=== PATIENT | female | born 1990 | race Hispanic/Latino ===

== ENCOUNTER 2022-07-31 08:27 | Emergency (ER) | payer MEDICARE, MEDICAID ==
[~2022-07-31] VITALS: Ht 154.9 cm; Wt 74.8 kg
[2022-07-31 08:54] LABS: BASOPHILS % (AUTO) 0.4 % (0.0-5.0); EOSINOPHILS % (AUTO) 1.5 % (0.0-8.0); HEMATOCRIT 31.4 % (36-48); MEAN CORPUSCULAR HEMOGLOBIN 27.1 pg (27.0-33.0); MEAN CORPUSCULAR HGB CONC 32.5 g/dL (32.0-36.0); MEAN CORPUSCULAR VOLUME 83.5 fL (79-99); NEUTROPHILS % (AUTO) 72.6 % (40.0-77.0); PLATELET COUNT (AUTO) 335 K/uL (130-400); RED BLOOD CELL COUNT(AUTO) 3.76 MIL/uL (4.00-5.50); RED CELL DISTRIBUTION WIDTH 16.9 % (11.0-15.5); WHITE BLOOD COUNT (AUTO) 8.3 K/uL (4.8-10.8)
[2022-07-31] MEDS ORDERED: 0.9%NACL 1000ML 1,000 ML IV SCH (09:00)
[2022-07-31] MEDS ORDERED: ONDANSETRON 4MG INJ IV ONE (09:00)
[2022-07-31] MEDS ORDERED: ACETAMINOPHEN 500 MG TABLET PO ONE (09:00)
[2022-07-31 09:04] LABS: CREATININE 0.5 mg/dL (0.5-1.5); POTASSIUM 3.3 mmol/L (3.5-5.1)
[2022-07-31 09:09] LABS: ALBUMIN 2.4 g/dL (3.5-5.0); TOTAL PROTEIN, SERUM 6.4 g/dL (6.0-8.3)
[2022-07-31 11:01] VITALS: BP 109/69
== END 2022-07-31 11:02 | disposition home or self-care (01) ==
LOC: EDH 08:27
DX: O89.4 Spinal and epidural anesthesia-induced headache during the puerperium (principal); O90.89 Other complications of the puerperium, not elsewhere classified; R11.2 Nausea with vomiting, unspecified
CPT/HCPCS: 62273; 99285; 96374; 96361; 80053; 85025; 36415; J7030; J2405

== ENCOUNTER 2022-08-12 14:53 | Emergency (ER) | payer MEDICARE, MEDICAID ==
[~2022-08-12] VITALS: Ht 154.9 cm; Wt 68.5 kg
[2022-08-12 16:20] LABS: BASOPHILS % (AUTO) 0.5 % (0.0-5.0); EOSINOPHILS % (AUTO) 1.2 % (0.0-8.0); HEMATOCRIT 39.3 % (36-48); LYMPHOCYTES % (AUTO) 29.6 % (21.0-51.0); MEAN CORPUSCULAR HEMOGLOBIN 26.8 pg (27.0-33.0); MEAN CORPUSCULAR HGB CONC 31.8 g/dL (32.0-36.0); MEAN CORPUSCULAR VOLUME 84.2 fL (79-99); NEUTROPHILS % (AUTO) 61.4 % (40.0-77.0); PLATELET COUNT (AUTO) 502 K/uL (130-400); RED BLOOD CELL COUNT(AUTO) 4.67 MIL/uL (4.00-5.50); RED CELL DISTRIBUTION WIDTH 16.8 % (11.0-15.5); WHITE BLOOD COUNT (AUTO) 8.9 K/uL (4.8-10.8)
[2022-08-12 17:19] VITALS: BP 126/88
== END 2022-08-12 17:21 | disposition home or self-care (01) ==
LOC: EDH 14:53
DX: N91.5 Oligomenorrhea, unspecified (principal); O72.1 Other immediate postpartum hemorrhage; Z79.899 Other long term (current) drug therapy
CPT/HCPCS: 36415; 85025

== ENCOUNTER 2023-09-21 08:17 | Observation (INO) | payer OTHER, MEDICAID ==
[~2023-09-21] VITALS: Ht 154.9 cm; Wt 71.7 kg
[~2023-09-21 08:17] MED LIST: ACET-2079 PO
[2023-09-21 08:20] VITALS: BP 131/71; PULSE 106; RESP 17
[2023-09-21] MEDS ORDERED: LACTATED RINGERS 1000ML IV SCH (10:00)
[2023-09-21 10:10] LABS: APPEARANCE,URINE CLEAR (CLEAR); BILIRUBIN,URINE NEGATIVE (NEGATIVE); COLOR,URINE YELLOW (YELLOW); GLUCOSE, URINE (UA) 50 mg/dL (NEGATIVE); KETONES,URINE 150 mg/dL (NEGATIVE); LEUKOCYTE ESTERASE ,URINE 75 Leu/uL (NEGATIVE); NITRATE,URINE NEGATIVE (NEGATIVE); OCCULT BLOOD,URINE NEGATIVE (NEGATIVE); PH,URINE 6.5 (5.0-8.0); PROTEIN,URINE 100 mg/dL (NEGATIVE)
[2023-09-21 10:25] LABS: ADD UA MICROSCOPIC YES
[2023-09-21 10:35] LABS: BACTERIA,URINE RARE /HPF (None Seen); MUCUS,URINE FEW LPF (None Seen); SQUAMOUS EPITHELIAL CELL,UR MOD /HPF (0-2)
[2023-09-21] MEDS ORDERED: ONDANSETRON 4MG INJ ONE (10:53)
[2023-09-21] MEDS: ONDANSETRON 4MG INJ IVP ONE (10:59)
== END 2023-09-21 11:30 | disposition home or self-care (01) ==
LOC: EDH 08:17 → LDH 08:18
PROVIDERS: ADMIT Obstetrics & Gynecology; ATTEND Obstetrics & Gynecology
DX: O21.2 Late vomiting of pregnancy (principal); O26.893 Other specified pregnancy related conditions, third trimester; R19.7 Diarrhea, unspecified; Z3A.30 30 weeks gestation of pregnancy; Z79.899 Other long term (current) drug therapy
CPT/HCPCS: 96374; 96361; 87088; 81001; G0378 ×3; G0379; J2405; J7120; 96360